=== PATIENT | female | born 1985 | race African-American/Black ===

== ENCOUNTER 2023-07-24 15:22 | Emergency (ER) | payer MEDICAID, OTHER ==
[~2023-07-24] VITALS: Ht 167.6 cm; Wt 116.3 kg
[2023-07-24 15:29] VITALS: BP 171/89; TEMP 97.4; O2SAT 100
[2023-07-24] MEDS ORDERED: AMOX500C PO (15:41)
== END 2023-07-24 16:10 | disposition left against medical advice (07) ==
LOC: M ED 15:22
DX: Z53.21 Procedure and treatment not carried out due to patient leaving prior to being seen by health care provider (principal)